=== PATIENT | female | born 1980 | race Caucasian/White ===

== ENCOUNTER 2019-12-13 15:00 | Emergency (ER) | payer MEDICAID, OTHER ==
[2019-12-13] MEDS ORDERED: Sodium Chloride 0.9% 1,000 ML IV STA (15:17)
[2019-12-13] MEDS ORDERED: HYDROmorphone 0.5 MG/0.5 ML Syringe IVPUSH ONE ×2 (15:18→17:47)
[2019-12-13] MEDS ORDERED: cefTRIAXone 2 GM in Sodium Chloride 0.9% 100 ML IV ONE (15:18)
[2019-12-13] MEDS: Ondansetron 4 MG/2 ML SDV IVPUSH ONE ×2 (15:21→17:15)
[2019-12-13] MEDS: Sodium Chloride 0.9% 10 ML Syringe FLUSH PRN ×2 (15:21→15:52)
--- NOTE | 2019-12-13 15:23 | EDM.PDOC ---
<Sunni Vincent - Last Filed: 12/13/19 15:17> ED HPI GENERAL MEDICAL PROBLEM - General Chief Complaint: Genitourinary Problem Stated Complaint: [facility] BR[facility]GHT IN FOR UTI Time Seen by Provider: 12/13/19 15:08 Source of Information: Reports: Patient History Limitations: Reports: No Limitations - History of Present Illness INITIAL COMMENTS - FREE TEXT/NARRATIVE: Patient is a 39-year-old female who was brought in by [facility] for pelvic burning, dysuria, fever, and severe back pain. She was seen yesterday at [facility] for similar symptoms and was diagnosed with a UTI. She was provided a prescription for an oral antibiotic, however she states she was unable to fill prescription because of insurance issues and she couldn't afford to pay for the medication out of pocket. She notes today the bilateral flank and back pain has increased and the pain is now radiating down the back of her legs. She rates the pain at a 9/10 and describes it as a constant burning and sharp pain. She notes burning in the pelvic region that is constant and burning with urination. She reports she has noted blood in her urine at home and has had a fever at home. She took ibuprofen three hours ago for the fever. She was nauseous while in the ambulance and was administered 4 mg of Zofran IV. She denies any chest pain, shortness of breath, and abdominal pain. Onset: Gradual Duration: Day(s):, Getting Worse Location: Reports: Back (bilateral flank and lumbar pain that radiates down bilateral legs), Pelvis (constant burning sensation) Quality: Reports: Burning, Sharp Severity: Moderate Improves with: Reports: Medication Worsens with: Reports: Movement Associated Symptoms: Reports: Fever/Chills. Denies: Chest Pain, Shortness of Breath, Syncope Treatments PUBLIC SAFETY POLICE: Reports: IV/IO, NSAIDS (Ibuprofen taken at home for fever), Other Medication(s) (Zofran IV) Lower Back Pain Score (Numeric/FACES): 10 - Related Data Allergies Allergy/AdvReac Type Severity Reaction Status Date / Time clarithromycin Allergy Hives Verified 12/13/19 15:11 ketorolac [From Toradol] Allergy Headache Verified 12/13/19 15:11 Home Meds: Home Meds Ibuprofen 200 mg PO Q4HR PRN 12/13/19 [History] LORazepam [Ativan] 0.5 mg PO DAILY 12/13/19 [History] QUEtiapine [SEROquel] 100 mg PO BEDTIME 12/13/19 [History] Past Medical History HEENT History: Reports: Other (See Below) Other HEENT History: severe dental decay Cardiovascular History: Reports: Other (See Below) Other Cardiovascular History: Endocarditis Gastrointestinal History: Reports: Other (See Below) Other Gastrointestinal History: G-tube Genitourinary History: Reports: Acute Renal Failure [employer] History: Reports: Musculoskeletal History: Reports: None Neurological History: Reports: None Psychiatric History: Reports: Addiction, Anxiety Endocrine/Metabolic History: Reports: Obesity/BMI 30+ Hematologic History: Reports: Anemia Immunologic History: Reports: None Oncologic (Cancer) History: Reports: None Dermatologic History: Reports: None - Infectious Disease History Infectious Disease History: Reports: Hepatitis C, Other (See Below) Other Infectious Disease History: Pt reports Hepatitis C is gone now as of . - Past Surgical History Respiratory Surgical History: Reports: Tracheostomy GI Surgical History: Reports: Cholecystectomy Female Surgical History: Reports: Section Social & Family History - Tobacco Use Smoking Status *Q: Current Every Day Smoker Years of Tobacco use: 20 Packs/Tins Daily: 0.5 - Caffeine Use Caffeine Use: Reports: Soda, Tea - Recreational Drug Use Recreational Drug Use: No - Living Situation & Occupation Living situation: Reports: Single, with Family Occupation: Unemployed ED ROS GENERAL - Review of Systems Review Of Systems: See Below Constitutional: Reports: Fever, Chills. Denies: Weakness, Diaphoresis Respiratory: Reports: No Symptoms. Denies: Shortness of Breath, Wheezing Cardiovascular: Reports: No Symptoms. Denies: Chest Pain, Edema, Lightheadedness, Palpitations GI/Abdominal: Reports: Nausea. Denies: Abdominal Pain, Diarrhea, Vomiting : Reports: Dysuria, Flank Pain (bilateral), Frequency, Hematuria, Pain, Urgency. Denies: Urinary Retention Musculoskeletal: Reports: Back Pain (lower ) Skin: Reports: Wound (scattered abrasions to posterior aspect of bilateral hands ). Denies: Rash, Erythema Neurological: Reports: Headache, Tingling (down bilateral legs from lower back pain). Denies: Confusion, Dizziness, Numbness, Difficulty Walking, Weakness Psychiatric: Reports: No Symptoms ED EXAM, RENAL/ - Physical Exam Exam: See Below Exam Limited By: No Limitations General Appearance: Alert, Mild Distress Neck: Normal Inspection, Supple, Non-Tender, Full Range of Motion Respiratory/Chest: No Respiratory Distress, No Accessory Muscle Use, Chest Non- Tender, Wheezing (mild wheezing bilateral lower lobes). No: Rales, Rhonchi Cardiovascular: Normal Peripheral Pulses, Regular Rate, Rhythm, No Edema, Tachycardia. No: No Murmur GI/Abdominal: Normal Bowel Sounds, Soft, Non-Tender, No Organomegaly, No Distention Back Exam: Normal Inspection, Full Range of Motion, CVA Tenderness (L), CVA Tenderness (R), Other (bilateral lower back pain with palpation) Extremities: Normal Inspection, Normal Range of Motion, Non-Tender, No Pedal Edema, Normal Capillary Refill, Leg Pain (pain with palpation to posterior aspects of bilateral legs) Neurological: Alert, Oriented, Normal Cognition, No Motor/Sensory Deficits Psychiatric: Normal Affect, Normal Mood Skin Exam: Warm, Dry, Intact, No Rash, Wound/Incision (scattered abrasions and ecchymosis to posterior aspect of bilateral hands w). No: Erythema Course - Vital Signs Last Recorded V/S: Last Vital Signs Temp 98.6 F 12/13/19 15:05 Pulse 103 H 12/13/19 15:05 Resp 18 12/13/19 15:05 BP 120/81 12/13/19 15:05 Pulse Ox 97 12/13/19 15:05 - Orders/Labs/Meds Orders: Active Orders 24 hr Category Date Time Status Peripheral IV Care [RC] . DIRECTED Care 12/13/19 15:17 Active UA W/MICROSCOPIC [URIN] Stat Lab 12/13/19 16:40 Results Sodium Chloride 0.9% [Saline Flush] Med 12/13/19 15:17 Active 10 ml FLUSH ASDIRECTED PRN ED Antiemetic Medication Reflex [OM.PC] Stat Oth 12/13/19 15:17 Ordered Peripheral IV Insertion Adult [OM.PC] Stat Oth 12/13/19 15:17 Ordered Medication Orders Sodium Chloride (Saline Flush) 10 ml FLUSH ASDIRECTED PRN PRN Reason: Keep Vein Open Last Admin: 12/13/19 15:52 Dose: 10 ml Admin: 12/13/19 15:21 Dose: 10 ml Labs: Laboratory Tests 12/13/19 12/13/19 12/13/19 Range/Units 15:39 15:39 15:39 WBC 16.53 H (3.98-10.04) K/mm3 RBC 5.28 H (3.98-5.22) M/mm3 Hgb 16.2 H D (11.2-15.7) gm/dl Hct 49.6 H (34.1-44.9) % MCV 93.9 D (79.4-94.8) fl MCH 30.7 (25.6-32.2) pg MCHC 32.7 (32.2-35.5) g/dl RDW Std Deviation 45.1 (36.4-46.3) fL Plt Count 372 H D (182-369) K/mm3 MPV 8.9 L (9.4-12.3) fl Neut % (Auto) 90.4 H (34.0-71.1) % Lymph % (Auto) 6.0 L (19.3-51.7) % Dorado % (Auto) 3.1 L (4.7-12.5) % Eos % (Auto) 0.2 L (0.7-5.8) Baso % (Auto) 0.1 (0.1-1.2) % Neut # (Auto) 14.94 H (1.56-6.13) K/mm3 Lymph # (Auto) 0.99 L (1.18-3.74) K/mm3 Dor[place] # (Auto) 0.52 H (0.24-0.36) K/mm3 Eos # (Auto) 0.03 L (0.04-0.36) K/mm3 Baso # (Auto) 0.01 (0.01-0.08) K/mm3 Manual Slide Review Abnormal smear Sodium 137 (136-145) mEq/L Potassium 3.9 (3.5-5.1) mEq/L Chloride 101 (98-107) mEq/L Carbon Dioxide 26 (21-32) mEq/L Anion Gap 13.9 (5-15) BUN 14 (7-18) mg/dL Creatinine 1.0 (0.55-1.02) mg/dL Est Cr Clr Drug Dosing 60.92 mL/min Estimated GFR (MDRD) > 60 (>60) mL/min BUN/Creatinine Ratio 14.0 (14-18) Glucose 61 L (74-106) mg/dL Lactic Acid 1.4 (0.4-2.0) mmol/L Calcium 9.1 (8.5-10.1) mg/dL Total Bilirubin 1.1 H (0.2-1.0) mg/dL AST 15 (15-37) U/L ALT 20 (14-59) U/L Alkaline Phosphatase 144 H (46-116) U/L Total Protein 8.6 H (6.4-8.2) g/dl Albumin 3.4 (3.4-5.0) g/dl Globulin 5.2 gm/dL Albumin/Globulin Ratio 0.7 L (1-2) HCG, Qual (NEGATIVE) Urine Color (Yellow) Urine Appearance (Clear) Urine pH (5.0-8.0) Ur Specific Cal[place] (1.005-1.030) Urine Protein (Negative) Urine Glucose (UA) (Negative) Urine Ketones (Negative) Urine Occult Blood (Negative) Urine Nitrite (Negative) Urine Bilirubin (Negative) Urine Urobilinogen (0.2-1.0) Ur Leukocyte Esterase (Negative) 12/13/19 12/13/19 Range/Units 15:39 16:40 WBC (3.98-10.04) K/mm3 RBC (3.98-5.22) M/mm3 Hgb (11.2-15.7) gm/dl Hct (34.1-44.9) % MCV (79.4-94.8) fl MCH (25.6-32.2) pg MCHC (32.2-35.5) g/dl RDW Std Deviation (36.4-46.3) fL Plt Count (182-369) K/mm3 MPV (9.4-12.3) fl Neut % (Auto) (34.0-71.1) % Lymph % (Auto) (19.3-51.7) % Dorado % (Auto) (4.7-12.5) % Eos % (Auto) (0.7-5.8) Baso % (Auto) (0.1-1.2) % Neut # (Auto) (1.56-6.13) K/mm3 Lymph # (Auto) (1.18-3.74) K/mm3 Dorado # (Auto) (0.24-0.36) K/mm3 Eos # (Auto) (0.04-0.36) K/mm3 Baso # (Auto) (0.01-0.08) K/mm3 Manual Slide Review Sodium (136-145) mEq/L Potassium (3.5-5.1) mEq/L Chloride (98-107) mEq/L Carbon Dioxide (21-32) mEq/L Anion Gap (5-15) BUN (7-18) mg/dL Creatinine (0.55-1.02) mg/dL Est Cr Clr Drug Dosing mL/min Estimated GFR (MDRD) (>60) mL/min BUN/Creatinine Ratio (14-18) Glucose (74-106) mg/dL Lactic Acid (0.4-2.0) mmol/L Calcium (8.5-10.1) mg/dL Total Bilirubin (0.2-1.0) mg/dL AST (15-37) U/L ALT (14-59) U/L Alkaline Phosphatase (46-116) U/L Total Protein (6.4-8.2) g/dl Albumin (3.4-5.0) g/dl Globulin gm/dL Albumin/Globulin Ratio (1-2) HCG, Qual Negative (NEGATIVE) Urine Color Yellow (Yellow) Urine Appearance Slt cloudy H (Clear) Urine pH 7.0 (5.0-8.0) Ur Specific [place] 1.025 (1.005-1.030) Urine Protein 2+ H (Negative) Urine Glucose (UA) Negative (Negative) Urine Ketones Negative (Negative) Urine Occult Blood 2+ H (Negative) Urine Nitrite Positive H (Negative) Urine Bilirubin Negative (Negative) Urine Urobilinogen 4.0 H (0.2-1.0) Ur Leukocyte Esterase 2+ H (Negative) Meds: Medications Generic Name Dose Route Start Last Admin Trade Name Freq PRN Reason Stop Dose Admin Sodium Chloride 10 ml 12/13/19 15:17 12/13/19 15:52 Saline Flush FLUSH 10 ml ASDIRECTED PRN Administration Keep Vein Open Discontinued Medications Generic Name Dose Route Start Last Admin Trade Name Freq PRN Reason Stop Dose Admin Hydromorphone HCl 0.5 mg 12/13/19 15:18 12/13/19 15:52 Dilaudid IVPUSH 12/13/19 15:19 0.5 mg ONETIME ONE Administration Ceftriaxone Sodium 2 gm/ 100 mls @ 200 mls/hr 12/13/19 15:18 12/13/19 15:52 Sodium Chloride IV 12/13/19 15:47 200 mls/hr ONETIME ONE Administration Sodium Chloride 1,000 mls @ 1,000 mls/hr 12/13/19 15:17 12/13/19 17:26 Normal Saline IV 12/13/19 16:16 Not Given .BOLUS STA Ondansetron HCl 4 mg 12/13/19 15:17 12/13/19 17:15 Zofran IVPUSH 12/13/19 15:18 4 mg ONETIME ONE Administration Departure - Departure Disposition: Home, Self-Care 01 Clinical Impression: Pyelonephritis - Discharge Information Referrals: Layne Bowden, [employer] [employer] [Primary Care Provider] - 1 Week Forms: ED Department Discharge Additional Instructions: Drink plenty of fluids. Take keflex 2 times per day for 10 days. Take the zofran every 6 hours as needed for nausea and vomiting. Take tylenol or motrin for pain. If that does not help, try the hydrocodone. Please return if you are worse. Sepsis Event Note - Evaluation Sepsis Screening Result: Possible Sepsis Risk - Focused Exam Vital Signs: Vital Signs Temp Pulse Resp BP Pulse Ox 12/13/19 15:05 98.6 F 103 H 18 120/81 97 Date Exam was Performed: 12/13/19 Time Exam was Performed: 15:17 - My Orders Last 24 Hours: My Active Orders 12/13/19 15:17 Peripheral IV Care [RC] . DIRECTED Sodium Chloride 0.9% [Saline Flush] 10 ml FLUSH ASDIRECTED PRN ED Antiemetic Medication Reflex [OM.PC] Stat Peripheral IV Insertion Adult [OM.PC] Stat 12/13/19 16:40 UA W/MICROSCOPIC [URIN] Stat - Assessment/Plan Last 24 Hours: My Active Orders 12/13/19 15:17 Peripheral IV Care [RC] . DIRECTED Sodium Chloride 0.9% [Saline Flush] 10 ml FLUSH ASDIRECTED PRN ED Antiemetic Medication Reflex [OM.PC] Stat Peripheral IV Insertion Adult [OM.PC] Stat 12/13/19 16:40 UA W/MICROSCOPIC [URIN] Stat <[email or web address] - Last Filed: 12/13/19 17:50> Course - Re-Assessments/Exams Free Text/Narrative Re-Assessment/Exam: 12/13/19 17:11 I examined the patient myself and I agree with Sunni's assessment and plan. I ordered an IV NS 1L bolus, zofran 4mg IV, dilaudid IV, rocephin 2 grams IV, labs and UA. Her WBC is elevated at 16.53. Her Hgb is elevated at 16.2. Her platelets are elevated at 372. Her lactic acid is normal at 1.4. Her total bili is elevated at 1.1. Her alk phos is elevated at 149. Her HCG is negative. She has pyelonephritis. She cannot afford her meds. I will give her some meds from [facility]. 12/13/19 17:47 Her UA shows a UTI. I have ordered something more for pain. Departure - Departure Time of Disposition: 17:50 Condition: Good - Discharge Information *PRESCRIPTION DRUG MONITORING PROGRAM REVIEWED*: No *COPY OF PRESCRIPTION DRUG MONITORING REPORT IN PATIENT DEVANG: No Sepsis Event Note - Focused Exam Date Exam was Performed: 12/13/19 Time Exam was Performed: 17:47
== END 2019-12-13 18:13 | disposition home or self-care (01) ==
LOC: JD.ED 15:00
DX: N12 Tubulo-interstitial nephritis, not specified as acute or chronic (principal); N39.0 Urinary tract infection, site not specified; F41.9 Anxiety disorder, unspecified; F17.210 Nicotine dependence, cigarettes, uncomplicated; Z79.899 Other long term (current) drug therapy; Z88.1 Allergy status to other antibiotic agents
CPT/HCPCS: 36415; 80053; 81001; 83605; 84703; 85025; 96365; 96375; 96376; 99284; J0696; J1170; J2405; J7050

== ENCOUNTER 2020-02-03 17:09 | Emergency (ER) | payer MEDICAID ==
--- NOTE | 2020-02-03 18:28 | EDM.PDOCBH ---
ED HPI GENERAL MEDICAL PROBLEM - General Chief Complaint: Behavioral/Psych Stated Complaint: SUICIDAL IDEATIONS Time Seen by Provider: 02/03/20 17:29 Source of Information: Reports: Patient History Limitations: Reports: No Limitations - History of Present Illness INITIAL COMMENTS - FREE TEXT/NARRATIVE: Patient is a 39-year-old female who presents to the ER with complaints of for suicidal ideation. She states that over the last 3 days she "has not been right ". She also discussed paranoid thoughts that she is not safe in her home and that people are out to get her. She does also admit to hearing voices which are "whispering ", but she is not able to make out what they are saying. She has fleeting thoughts of harming herself but does not have a specific plan. She has been walking around with a knife in her pocket which during the triage process she did pull out and ended up giving to the nurse. When asked why she was carrying this, the patient stated because she feels like people are out to get her. She denies any visual hallucinations. She does have a history of bipolar and severe anxiety. She at one time took Seroquel and Ativan, however she has not taken this for over a month. She does have a history of heroin addiction but states she has not used that drug for "many years ". States she did try meth about 1 month ago and then again 1 week ago but has not used since that time. She did also smoke marijuana 1 week week ago. She states that she had 2 drinks earlier today to help try to calm herself. Her friend also gave her a Klonopin 0.5 mg earlier today for her anxiety. When asked if there is been any traumatic events that could have triggered these feelings, patient did become tearful and explained that 1 of her friends was recently put in custodial for murder and that since that time she is felt like people are out to get her. She lives with a friend, but does not have any family or support system locally. - Related Data Allergies Allergy/AdvReac Type Severity Reaction Status Date / Time clarithromycin Allergy Hives Verified 02/03/20 17:26 ketorolac [From Toradol] Allergy Headache Verified 02/03/20 17:26 Home Meds: Home Meds LORazepam [Ativan] 1 mg PO BID 12/13/19 [History] QUEtiapine [SEROquel] 100 mg PO BEDTIME 12/13/19 [History] Past Medical History HEENT History: Reports: Other (See Below) Other HEENT History: severe dental decay Cardiovascular History: Reports: Other (See Below) Other Cardiovascular History: Endocarditis Gastrointestinal History: Reports: Other (See Below) Other Gastrointestinal History: G-tube Genitourinary History: Reports: Acute Renal Failure CANINE DEPUTY History: Reports: Musculoskeletal History: Reports: None Neurological History: Reports: None Psychiatric History: Reports: Addiction, Anxiety Endocrine/Metabolic History: Reports: Obesity/BMI 30+ Hematologic History: Reports: Anemia Immunologic History: Reports: None Oncologic (Cancer) History: Reports: None Dermatologic History: Reports: None - Infectious Disease History Infectious Disease History: Reports: Hepatitis C, Other (See Below) Other Infectious Disease History: Pt reports Hepatitis C is gone now as of . - Past Surgical History Respiratory Surgical History: Reports: Tracheostomy GI Surgical History: Reports: Cholecystectomy Female Surgical History: Reports: Section Social & Family History - Tobacco Use Smoking Status *Q: Current Every Day Smoker Years of Tobacco use: 10 Packs/Tins Daily: 0.5 - Caffeine Use Caffeine Use: Reports: Coffee, Energy Drinks, Soda, Tea - Recreational Drug Use Recreational Drug Use: Yes Drug Use in Last 12 Months: No Recreational Drug Type: Reports: Heroin - Living Situation & Occupation Living situation: Reports: Single, with Family Occupation: Unemployed ED ROS GENERAL - Review of Systems Review Of Systems: See Below Constitutional: Reports: No Symptoms HEENT: Reports: No Symptoms Respiratory: Reports: No Symptoms Cardiovascular: Reports: No Symptoms Endocrine: Reports: No Symptoms GI/Abdominal: Reports: No Symptoms : Reports: No Symptoms Musculoskeletal: Reports: No Symptoms Skin: Reports: No Symptoms Neurological: Reports: No Symptoms Psychiatric: Reports: Anxiety, Depression, Hallucinations, Suicidal Ideation Hematologic/Lymphatic: Reports: No Symptoms Immunologic: Reports: No Symptoms ED EXAM, BEHAVIORAL HEALTH - Physical Exam Exam: See Below Exam Limited By: No Limitations General Appearance: Alert, WD/WN, No Apparent Distress Respiratory/Chest: No Respiratory Distress, Lungs Clear, Normal Breath Sounds, No Accessory Muscle Use, Chest Non-Tender Cardiovascular: Normal Peripheral Pulses, Regular Rate, Rhythm, No Edema, No Gallop, No JVD, No Murmur, No Rub GI/Abdominal: Normal Bowel Sounds, Soft, Non-Tender, No Organomegaly, No Distention, No Abnormal Bruit, No Mass Extremities: Other (Scattered scabs to bilateral forearms and face.) Neurological: Alert, Normal Mood/Affect, CN II-XII Intact, Normal Cognition, Normal Gait, Normal Reflexes, No Motor/Sensory Deficits, Oriented x 3 Psychiatric: Alert, Normal Cognition, Oriented, Depressed Mood, Tearful, Suicidal Thoughts, Auditory Hallucinations, Paranoid Thoughts, Other ( Cooperative). No: Flight of Ideas, Homicidal Thoughts, Suicidal Plan, Visual Hallucinations, Threatening Behavior Skin Exam: Warm, Dry, Intact, Normal color, No rash EKG INTERPRETATION EKG Date: 02/03/20 Time: 18:05 Rhythm: NSR Rate (Beats/Min): 99 [place]: Normal P-Wave: Present QRS: Normal ST-T: Normal QT: Normal EKG Interpretation Comments: Borderline sinus IVCD Non-diagnostic ST-T changes lead II and V6. EKG interpreted by Dr. Garcia. COURSE, BEHAVIORAL HEALTH COMP - Course Vital Signs: Last Vital Signs Temp 97.4 F 02/03/20 21:24 Pulse 90 02/03/20 21:24 Resp 16 02/03/20 21:24 BP 111/87 02/03/20 21:24 Pulse Ox 94 L 02/03/20 21:24 Orders, Labs, Meds: Active Orders 24 hr Category Date Time Status EKG Documentation Completion [RC] STAT Care 02/03/20 17:53 Active Laboratory Tests 02/03/20 02/03/20 02/03/20 Range/Units 18:05 18:05 18:05 WBC 13.16 H (3.98-10.04) K/mm3 RBC 5.32 H (3.98-5.22) M/mm3 Hgb 16.2 H (11.2-15.7) gm/dl Hct 49.9 H (34.1-44.9) % MCV 93.8 (79.4-94.8) fl MCH 30.5 (25.6-32.2) pg MCHC 32.5 (32.2-35.5) g/dl RDW Std Deviation 45.4 (36.4-46.3) fL Plt Count 338 (182-369) K/mm3 MPV 9.3 L (9.4-12.3) fl Neutrophils % (Manual) 57 (40-60) % Band Neutrophils % 0 (0-10) % Lymphocytes % (Manual) 38 (20-40) % Atypical Lymphs % 0 % Monocytes % (Manual) 5 (2-10) % Eosinophils % (Manual) 0 L (0.7-5.8) % Basophils % (Manual) 0 L (0.1-1.2) Platelet Estimate Adequate Plt Morphology Comment Normal RBC Morph Comment Normal Sodium 139 (136-145) mEq/L Potassium 3.4 L (3.5-5.1) mEq/L Chloride 105 (98-107) mEq/L Carbon Dioxide 21 (21-32) mEq/L Anion Gap 16.4 H (5-15) BUN 12 (7-18) mg/dL Creatinine 0.7 (0.55-1.02) mg/dL Est Cr Clr Drug Dosing 87.03 mL/min Estimated GFR (MDRD) > 60 (>60) mL/min BUN/Creatinine Ratio 17.1 (14-18) Glucose 100 (74-106) mg/dL Calcium 9.4 (8.5-10.1) mg/dL Total Bilirubin 0.7 (0.2-1.0) mg/dL AST 18 (15-37) U/L ALT 19 (14-59) U/L Alkaline Phosphatase 131 H (46-116) U/L Total Protein 8.2 (6.4-8.2) g/dl Albumin 3.7 (3.4-5.0) g/dl Globulin 4.5 gm/dL Albumin/Globulin Ratio 0.8 L (1-2) TSH 3rd Generation 1.431 (0.358-3.74) uIU/mL Urine HCG, Qual (NEGATIVE) Salicylates 2.9 (2.8-20) mg/dL Urine Opiates Screen (WYRCCX=043) Ur Buprenorphine Scrn (CUTOFF=10) Ur Oxycodone Screen (RLT9BP=560) Urine Methadone Screen (VGWQZD=067) Ur Propoxyphene Screen (LCZFTO=491) Acetaminophen 0 L (10-30) ug/mL Ur Barbiturates Screen (VWPNCC=356) Ur Tricyclics Screen (TBVVXJ=749) Ur Phencyclidine Scrn (CUTOFF=25) Ur Amphetamine Screen (OQUCAD=900) U Methamphetamines Scrn (DBFMXV=947) U Benzodiazepines Scrn (EYADMK=211) U Cocaine Metab Screen (GSQCRY=993) U Marijuana (THC) Screen (CUTOFF=50) Ethyl Alcohol 0.05 (0.00) gm% 02/03/20 02/03/20 Range/Units 18:45 18:45 WBC (3.98-10.04) K/mm3 RBC (3.98-5.22) M/mm3 Hgb (11.2-15.7) gm/dl Hct (34.1-44.9) % MCV (79.4-94.8) fl MCH (25.6-32.2) pg MCHC (32.2-35.5) g/dl RDW Std Deviation (36.4-46.3) fL Plt Count (182-369) K/mm3 MPV (9.4-12.3) fl Neutrophils % (Manual) (40-60) % Band Neutrophils % (0-10) % Lymphocytes % (Manual) (20-40) % Atypical Lymphs % % Monocytes % (Manual) (2-10) % Eosinophils % (Manual) (0.7-5.8) % Basophils % (Manual) (0.1-1.2) Platelet Estimate Plt Morphology Comment RBC Morph Comment Sodium (136-145) mEq/L Potassium (3.5-5.1) mEq/L Chloride (98-107) mEq/L Carbon Dioxide (21-32) mEq/L Anion Gap (5-15) BUN (7-18) mg/dL Creatinine (0.55-1.02) mg/dL Est Cr Clr Drug Dosing mL/min Estimated GFR (MDRD) (>60) mL/min BUN/Creatinine Ratio (14-18) Glucose (74-106) mg/dL Calcium (8.5-10.1) mg/dL Total Bilirubin (0.2-1.0) mg/dL AST (15-37) U/L ALT (14-59) U/L Alkaline Phosphatase (46-116) U/L Total Protein (6.4-8.2) g/dl Albumin (3.4-5.0) g/dl Globulin gm/dL Albumin/Globulin Ratio (1-2) TSH 3rd Generation (0.358-3.74) uIU/mL Urine HCG, Qual Negative (NEGATIVE) Salicylates (2.8-20) mg/dL Urine Opiates Screen Negative (FEBCUJ=789) Ur Buprenorphine Scrn Negative (CUTOFF=10) Ur Oxycodone Screen Negative (SMP2VH=992) Urine Methadone Screen Negative (MLSWHM=766) Ur Propoxyphene Screen Negative (HKLVCP=522) Acetaminophen (10-30) ug/mL Ur Barbiturates Screen Negative (KNFWSP=031) Ur Tricyclics Screen Negative (NGEUOB=635) Ur Phencyclidine Scrn Negative (CUTOFF=25) Ur Amphetamine Screen Presumptive positive H (NDLZEO=130) U Methamphetamines Scrn Presumptive positive H (JTEPNL=660) U Benzodiazepines Scrn Negative (ADISRO=488) U Cocaine Metab Screen Negative (LMBJFN=346) U Marijuana (THC) Screen Presumptive positive H (CUTOFF=50) Ethyl Alcohol (0.00) gm% Medications Discontinued Medications Generic Name Dose Route Start Last Admin Trade Name Freq PRN Reason Stop Dose Admin Haloperidol 5 mg 02/03/20 20:53 02/03/20 21:04 Haldol PO 02/03/20 20:54 5 mg ONETIME ONE Administration Re-Assessment/Re-Exam: 02/03/2020 1950 Work-up was remarkable for a WBC slightly elevated at 13.16, hemoglobin slightly elevated at 16.2, and anion gap slightly elevated at 16.4 indicating the patient is likely dehydrated. Potassium slightly low at 3.4. hCG was negative. Tox screen was positive for amphetamines, methamphetamines, and marijuana which would correlate with the report the patient gave. [facility] and spoke with psychiatrist, Dr. Navarro. He has accepted the patient for transfer. Dr. Veliz requested that Haldol be given prior to departure. Emergency hold paperwork has been completed. We will contact [facility] to arrange for transport to [place]. 02/03/[id number] [facility] is here to transport patient. Patient was cooperative and left emergency department without event. Departure - Departure Time of Disposition: 19:50 Disposition: DC/Tfer to Psych Hosp/Unit [facility] Clinical Impression: Suicidal ideation, Auditory hallucinations, Paranoid delusion - Discharge Information Referrals: PCP,None [Primary Care Provider] - Forms: ED Department Discharge Sepsis Event Note - Evaluation Sepsis Screening Result: No Definite Risk - Focused Exam Vital Signs: Vital Signs Temp Pulse Resp BP Pulse Ox 02/03/20 21:24 97.4 F 90 16 111/87 94 L 02/03/20 17:21 97.2 F 109 H 18 135/98 H 94 L Date Exam was Performed: 02/03/20 Time Exam was Performed: 21:38 - My Orders Last 24 Hours: My Active Orders 02/03/20 17:53 EKG Documentation Completion [RC] STAT - Assessment/Plan Last 24 Hours: My Active Orders 02/03/20 17:53 EKG Documentation Completion [RC] STAT
[2020-02-03 18:41] LABS: ACETAMINOPHEN 0 ug/mL (10-30)
[2020-02-03] MEDS ORDERED: Haloperidol 5 MG Tab PO ONE (20:53)
== END 2020-02-03 21:20 ==
LOC: JD.ED 17:09
DX: F22 Delusional disorders (principal); R45.851 Suicidal ideations; Z88.1 Allergy status to other antibiotic agents; F41.9 Anxiety disorder, unspecified; E66.9 Obesity, unspecified; Z68.32 Body mass index [BMI] 32.0-32.9, adult; Z79.899 Other long term (current) drug therapy; F17.210 Nicotine dependence, cigarettes, uncomplicated
CPT/HCPCS: 36415; 80053; 80306; 80307; 81025; 84443; 85007; 85027; 93005; 99285; A9270; 93010

== ENCOUNTER 2020-02-23 15:13 | Emergency (ER) | payer MEDICAID ==
--- NOTE | 2020-02-23 16:16 | EDM.PDOC ---
ED HPI GENERAL MEDICAL PROBLEM - General Chief Complaint: Upper Extremity Injury/Pain Stated Complaint: POSS BROKEN ARM Time Seen by Provider: 02/23/20 15:44 Source of Information: Reports: Patient History Limitations: Reports: No Limitations - History of Present Illness INITIAL COMMENTS - FREE TEXT/NARRATIVE: Patient is a 39-year-old female who presents with complaints of left wrist pain. States that she tripped over a laundry basket and landed with her hands in front of her to catch herself. Patient states she took ibuprofen prior to coming ER but did not help. She has no history of previous injury to this extremity. Left Arm Pain Score (Numeric/FACES): 10 - Related Data Allergies Allergy/AdvReac Type Severity Reaction Status Date / Time clarithromycin Allergy Hives Verified 02/23/20 15:39 ketorolac [From Toradol] Allergy Headache Verified 02/23/20 15:39 Home Meds: Home Meds QUEtiapine [SEROquel] 100 mg PO BEDTIME 12/13/19 [History] Acetaminophen/HYDROcodone [[place] 325-5 MG] 1 tab PO Q4H PRN #10 tablet 02/23/20 [Rx] Past Medical History HEENT History: Reports: Other (See Below) Other HEENT History: severe dental decay Cardiovascular History: Reports: Other (See Below) Other Cardiovascular History: Endocarditis Gastrointestinal History: Reports: Other (See Below) Other Gastrointestinal History: G-tube Genitourinary History: Reports: Acute Renal Failure 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 - Past Surgical History Respiratory Surgical History: Reports: Tracheostomy GI Surgical History: Reports: Cholecystectomy Female Surgical History: Reports: Section Social & Family History - Tobacco Use Smoking Status *Q: Current Every Day Smoker Years of Tobacco use: 22 Packs/Tins Daily: 0.5 - Caffeine Use Caffeine Use: Reports: Coffee, Soda - Recreational Drug Use Recreational Drug Use: No - Living Situation & Occupation Living situation: Reports: Single, with Family Occupation: Unemployed Review of Systems - Review of Systems Review Of Systems: Comprehensive ROS is negative, except as noted in HPI. ED EXAM, GENERAL - Physical Exam Exam: See Below Exam Limited By: No Limitations General Appearance: Alert, WD/WN, No Apparent Distress Respiratory/Chest: No Respiratory Distress, Lungs Clear, Normal Breath Sounds, No Accessory Muscle Use, Chest Non-Tender Cardiovascular: Normal Peripheral Pulses, Regular Rate, Rhythm, No Edema, No Gallop, No JVD, No Murmur, No Rub Extremities: Other (Mild's edema and slight deformity to left wrist. CMS intact distal to injury.) Neurological: Alert, Oriented, CN II-XII Intact, Normal Cognition, Normal Gait, Normal Reflexes, No Motor/Sensory Deficits Psychiatric: Normal Affect, Normal Mood Skin Exam: Warm, Dry, Intact, Normal Color, No Rash ED TRAUMA EXTREMITY PROCEDURES - Splinting Left Upper Extremity Splint Site: left short arm/wrist Pre-Procedure NV Status: Normal Post-Procedure NV Status: Normal Splint Material: Fiberglass, Sling Splint Design: Volar Applied & Form Fitted By: Provider Provider Post-Splint Application NV Check: NV Status Normal, Good Position Complications: No Course - Vital Signs Last Recorded V/S: Last Vital Signs Temp 98 F 02/23/20 15:35 Pulse 96 02/23/20 15:35 Resp 18 02/23/20 15:35 BP 122/94 H 02/23/20 15:35 Pulse Ox 99 02/23/20 15:35 - Orders/Labs/Meds Orders: Active Orders 24 hr Category Date Time Status DME for Discharge [COMM] Routine Oth 02/23/20 16:17 Ordered - Re-Assessments/Exams Free Text/Narrative Re-Assessment/Exam: Xray shows a comminuted fracture of the left distal radius. I will splint and advise to f/u with Dr. Shaver. Departure - Departure Time of Disposition: 16:12 Disposition: Home, Self-Care 01 Condition: Fair Clinical Impression: Fracture of radius Qualifiers: Encounter type: initial encounter Radius location: distal Fracture type: closed Fracture morphology: unspecified fracture morphology Laterality: left Qualified Code(s): S52.502A - Unspecified fracture of the lower end of left radius, initial encounter for closed fracture - Discharge Information *PRESCRIPTION DRUG MONITORING PROGRAM REVIEWED*: Yes *COPY OF PRESCRIPTION DRUG MONITORING REPORT IN PATIENT DEVANG: No Prescriptions: Acetaminophen/HYDROcodone [[place] 325-5 MG] 1 tab PO Q4H PRN #10 tablet PRN Reason: Pain Instructions: Radial Fracture Referrals: Maxine Freire NP [Primary Care Provider] - Sammy Shaver MD [Physician] - Forms: ED Department Discharge Additional Instructions: You were seen in the emergency department today for pain and swelling to your left wrist after falling. An x-ray was done and showed a fracture of your distal radius. Splint was applied. This should be left in place and kept dry. You may take Tylenol as needed for pain. For pain not relieved by Tylenol, a prescription for [place] has been sent to [facility]. Use this medication as prescribed. Do not drive or work for at least 12 hours after taking this medication. Ensure that you are not taking more than 4000 mg of Tylenol in 1 day. Please be aware that there is 325 mg of Tylenol in the [place] tablets. Call to schedule an appointment with Dr. Shaver, orthopedist, for late next week. The number to schedule with him as listed below. Return to the ER as needed. Sepsis Event Note - Evaluation Sepsis Screening Result: No Definite Risk - Focused Exam Date Exam was Performed: 02/24/20 Time Exam was Performed: 12:58 - My Orders Last 24 Hours: My Active Orders 02/23/20 16:17 DME for Discharge [COMM] Routine - Assessment/Plan Last 24 Hours: My Active Orders 02/23/20 16:17 DME for Discharge [COMM] Routine
--- NOTE | 2020-02-23 16:23 | CR ---
Left wrist: 4 views left wrist were obtained. Comparison: No previous wrist study. Comminuted distal radial fracture is seen through the metaphysis with articular extension. Mild posterior impaction is noted. Distal ulna appears intact. No additional bony abnormality is seen. Diffuse soft tissue swelling is present. Impression: 1. Comminuted distal radial fracture as described above. Diagnostic code #3 Study was dictated in MDT
== END 2020-02-23 16:24 | disposition home or self-care (01) ==
LOC: JD.ED 15:13
DX: S52.502A Unspecified fracture of the lower end of left radius, initial encounter for closed fracture (principal); E66.9 Obesity, unspecified; F17.210 Nicotine dependence, cigarettes, uncomplicated; Z68.30 Body mass index [BMI] 30.0-30.9, adult; Z88.1 Allergy status to other antibiotic agents; Z88.6 Allergy status to analgesic agent; W01.0XXA Fall on same level from slipping, tripping and stumbling without subsequent striking against object, initial encounter
CPT/HCPCS: 29125; 73110-26-LT; 73110-LT; 99283; 99283-25

== ENCOUNTER 2020-03-03 20:12 | Emergency (ER) | payer MEDICAID ==
[2020-03-03] MEDS ORDERED: Acetaminophen/HYDROcodone 325-10 MG Tab PO ONE (20:53)
--- NOTE | 2020-03-03 20:59 | EDM.PDOC ---
ED HPI GENERAL MEDICAL PROBLEM - General Chief Complaint: Upper Extremity Injury/Pain Stated Complaint: LEFT ARM BROKEN PAIN CANT SEE BONE/JOINT TIL THUR Time Seen by Provider: 03/03/20 20:23 Source of Information: Reports: Patient, Old Records History Limitations: Reports: No Limitations - History of Present Illness INITIAL COMMENTS - FREE TEXT/NARRATIVE: Patient is a 39-year-old female who presents to the ED for the evaluation of her left arm pain. Patient did break her distal radius, and was seen in this ER and a splint was placed, patient states she is having increased pain, and cannot get into bone and joint until , and has run out of pain medications, and was complaining about the smell of the splint, and was wondering if it could be changed to a cast. Patient has no other complaints then pain management and possible cast placement. Left Arm Pain Score (Numeric/FACES): 10 - Related Data Allergies Allergy/AdvReac Type Severity Reaction Status Date / Time clarithromycin Allergy Hives Verified 03/03/20 20:25 ketorolac [From Toradol] Allergy Headache Verified 02/23/20 15:39 Home Meds: Home Meds QUEtiapine [SEROquel] 100 mg PO BEDTIME 12/13/19 [History] Acetaminophen/HYDROcodone [[place] 325-5 MG] 1 tab PO Q6H PRN #20 tablet 03/03/20 [Rx] Past Medical History HEENT History: Reports: Other (See Below) Other HEENT History: severe dental decay Cardiovascular History: Reports: Other (See Below) Other Cardiovascular History: Endocarditis Gastrointestinal History: Reports: Other (See Below) Other Gastrointestinal History: G-tube Genitourinary History: Reports: Acute Renal Failure 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 - Past Surgical History Respiratory Surgical History: Reports: Tracheostomy GI Surgical History: Reports: Cholecystectomy Female Surgical History: Reports: Section Social & Family History - Caffeine Use Caffeine Use: Reports: Coffee, Soda - Living Situation & Occupation Living situation: Reports: Single, with Family Occupation: Unemployed Review of Systems - Review of Systems Review Of Systems: Comprehensive ROS is negative, except as noted in HPI. ED EXAM, GENERAL - Physical Exam Exam: See Below Exam Limited By: No Limitations General Appearance: Alert, WD/WN, No Apparent Distress Respiratory/Chest: No Respiratory Distress, Lungs Clear, Normal Breath Sounds, No Accessory Muscle Use, Chest Non-Tender Cardiovascular: Normal Peripheral Pulses, Regular Rate, Rhythm, No Murmur Extremities: Normal Inspection (with short arm splint on left arm), Normal Range of Motion (cant move fingers), Normal Capillary Refill Neurological: Alert, Oriented, Normal Cognition, No Motor/Sensory Deficits Psychiatric: Normal Affect, Normal Mood Skin Exam: Warm, Dry, Intact, Normal Color, No Rash Course - Vital Signs Last Recorded V/S: Last Vital Signs Temp 97.2 F 03/03/20 20:23 Pulse 88 03/03/20 20:23 Resp 16 03/03/20 20:23 BP 112/75 03/03/20 20:23 Pulse Ox 99 03/03/20 20:23 - Orders/Labs/Meds Orders: Active Orders 24 hr Category Date Time Status Acetaminophen/HYDROcodone [M[place] 325-10 MG] Med 03/03/20 20:53 Once 1 tab PO ONETIME ONE - Re-Assessments/Exams Free Text/Narrative Re-Assessment/Exam: 03/03/20 20:57 Did go over course of management with the patient, she will not be getting the cast placed at this ER today, and will have to follow-up with bone and joint on . I will however give her some more pain medication to get her through , and discharge her home with general recommendations. Departure - Departure Time of Disposition: 20:57 Disposition: Home, Self-Care 01 Condition: Good Clinical Impression: Left arm pain - Discharge Information *PRESCRIPTION DRUG MONITORING PROGRAM REVIEWED*: Yes *COPY OF PRESCRIPTION DRUG MONITORING REPORT IN PATIENT DEVANG: No Instructions: Cast or Splint Care, Adult, [id number] Referrals: Sammy Shaver MD [Primary Care Provider] - Additional Instructions: You were evaluated in the ER today regarding your ongoing left arm pain. You did not have a cath placed today, you will need to follow-up with orthopedics on as previously scheduled. You have been given some pain medication to get through until your appointment with Ortho. Please take the Morton as directed, 1 tab every 6 hours as needed. This was electronically prescribed to the [place] pharmacy located in the [facility] store, you may go there tomorrow Wednesday morning and tow picker this prescription and take as directed. Please return to the ER at any time if symptoms change or worsen. Sepsis Event Note - Evaluation Sepsis Screening Result: No Definite Risk - Focused Exam Vital Signs: Vital Signs Temp Pulse Resp BP Pulse Ox 03/03/20 20:23 97.2 F 88 16 112/75 99 Date Exam was Performed: 03/03/20 Time Exam was Performed: 20:53 - My Orders Last 24 Hours: My Active Orders 03/03/20 20:53 Acetaminophen/HYDROcodone [[place] 325-10 MG] 1 tab PO ONETIME ONE - Assessment/Plan Last 24 Hours: My Active Orders 03/03/20 20:53 Acetaminophen/HYDROcodone [[place] 325-10 MG] 1 tab PO ONETIME ONE
== END 2020-03-03 21:37 | disposition home or self-care (01) ==
LOC: JD.ED 20:12
DX: M79.602 Pain in left arm (principal); E66.9 Obesity, unspecified; F41.9 Anxiety disorder, unspecified; Z88.1 Allergy status to other antibiotic agents; Z68.32 Body mass index [BMI] 32.0-32.9, adult; Z88.8 Allergy status to other drugs, medicaments and biological substances; Z79.899 Other long term (current) drug therapy; Z90.89 Acquired absence of other organs
CPT/HCPCS: 99283; A9270; 99282

== ENCOUNTER 2020-08-07 14:06 | Emergency (ER) | payer MEDICAID ==
[2020-08-07] MEDS ORDERED: Sodium Chloride 0.9% 10 ML Syringe FLUSH PRN (14:32)
--- NOTE | 2020-08-07 15:05 | EDM.PDOC ---
ED HPI GENERAL MEDICAL PROBLEM - General Chief Complaint: Fever Stated Complaint: FEVER/INFECTION IN LEG Time Seen by Provider: 08/07/20 14:31 Source of Information: Reports: Patient History Limitations: Reports: No Limitations - History of Present Illness INITIAL COMMENTS - FREE TEXT/NARRATIVE: Patient is a 39 year old female presenting to the ER with c/o fever and an infection on her left lower leg. Pt states that a few weeks ago, she hit her leg on her coffee table and broke the skin. The wound never fully healed and over the last few days it has become increasingly painful, red, swollen, and warm. She developed a fever yesterday, but has had no nausea. vomiting, or diarrhea. She states that she has problems with chronic lower extremity edema after being on her feet for long periods and she thinks this is why it didn't fully heal. She also relapsed with IV meth use. She states that she was clean for about a year, but that she shot up meth 2 days ago. She has a scab on her left upper forearm and track bobby on her bilateral hands which she states is from this. She took ibuprofen about 2 hours prior to coming to ER. On triage, temperature was elevated at 101.3 temporal, pulse 121, blood pressure 114/77, respiratory rate 18, oxygen saturation 97%. Left Leg Pain Score (Numeric/FACES): 10 - Related Data Allergies Allergy/AdvReac Type Severity Reaction Status Date / Time clarithromycin Allergy Hives Verified 08/07/20 14:28 ketorolac [From Toradol] AdvReac Headache Verified 08/07/20 16:28 Home Meds: Home Meds QUEtiapine [SEROquel] 100 mg PO BEDTIME 12/13/19 [History] LORazepam [Ativan] 0.5 mg PO Q4H PRN 08/07/20 [History] Past Medical History HEENT History: Reports: Other (See Below) Other HEENT History: severe dental decay Cardiovascular History: Reports: Other (See Below) Other Cardiovascular History: Endocarditis Gastrointestinal History: Reports: Other (See Below) Other Gastrointestinal History: G-tube Genitourinary History: Reports: Acute Renal Failure [employer] History: Reports: Musculoskeletal History: Reports: None Neurological History: Reports: None Psychiatric History: Reports: Addiction, Anxiety Endocrine/Metabolic History: Reports: Obesity/BMI 30+ Hematologic History: Reports: Anemia Immunologic History: Reports: None Oncologic (Cancer) History: Reports: None Dermatologic History: Reports: None - Infectious Disease History Infectious Disease History: Reports: Hepatitis C, Other (See Below) Other Infectious Disease History: reports that she had the treatment - Past Surgical History Respiratory Surgical History: Reports: Tracheostomy GI Surgical History: Reports: Cholecystectomy Female Surgical History: Reports: Section Social & Family History - Tobacco Use Smoking Status *Q: Current Every Day Smoker Years of Tobacco use: 22 Packs/Tins Daily: 0.5 - Caffeine Use Caffeine Use: Reports: Coffee, Soda, Tea - Recreational Drug Use Recreational Drug Use: Yes Drug Use in Last 12 Months: Yes Recreational Drug Type: Reports: Methamphetamine - Living Situation & Occupation Living situation: Reports: Single, with Family Occupation: Unemployed ED ROS GENERAL - Review of Systems Review Of Systems: See Below Constitutional: Reports: Fever, Chills. Denies: Weakness HEENT: Reports: No Symptoms Respiratory: Reports: No Symptoms. Denies: Shortness of Breath, Cough Cardiovascular: Reports: No Symptoms Endocrine: Reports: No Symptoms GI/Abdominal: Reports: No Symptoms. Denies: Abdominal Pain, Diarrhea, Nausea, Vomiting : Reports: No Symptoms. Denies: Discharge, Dysuria, Flank Pain, Frequency Musculoskeletal: Reports: No Symptoms Skin: Reports: Other (2 open areas warmth, and swelling to left lower extremity.) Neurological: Reports: No Symptoms. Denies: Confusion, Dizziness, Headache Psychiatric: Reports: No Symptoms ED EXAM, SEPSIS - Physical Exam Exam: See Below General Appearance: Alert, WD/WN, No Apparent Distress Respiratory/Chest: No Respiratory Distress, Lungs Clear, Normal Breath Sounds, No Accessory Muscle Use, Chest Non-Tender Cardiovascular: Normal Peripheral Pulses, Regular Rate, Rhythm, No Edema, No Gal lop, No JVD, No Murmur, No Rub GI/Abdominal Exam: Normal Bowel Sounds, Soft, Non-Tender, No Organomegaly, No Distention, No Abnormal Bruit, No Mass, Pelvis Stable Neurological: Alert, Oriented, CN II-XII Intact, Normal Cognition, Normal Gait, Normal Reflexes, No Motor/Sensory Deficits Psychiatric: Normal Affect, Normal Mood Skin: Other (2 open areas (3 cm and 1 cm) to medial aspect of left lower leg. Redness and warmth is present and encompasses the entire circumference of the left lower leg. Area is very tender to palpation and has been marked with a skin marker. There is no obvious drainage however. 3 cm scabbed lesion to the left forearm. No redness or warmth surrounding this. Numerous bruises, scars, track bobby to the bilateral upper extremities.) Course - Vital Signs Last Recorded V/S: Last Vital Signs Temp 102.4 F H 08/07/20 18:22 Pulse 104 H 08/07/20 18:22 Resp 18 08/07/20 18:22 BP 111/79 08/07/20 18:22 Pulse Ox 94 L 08/07/20 18:22 - Orders/Labs/Meds Labs: Laboratory Tests 08/07/20 08/07/20 08/07/20 Range/Units 15:10 15:10 15:10 WBC 16.72 H (3.98-10.04) K/mm3 RBC 5.45 H (3.98-5.22) M/mm3 Hgb 12.8 D (11.2-15.7) gm/dl Hct 42.5 (34.1-44.9) % MCV 78.0 L D (79.4-94.8) fl MCH 23.5 L (25.6-32.2) pg MCHC 30.1 L (32.2-35.5) g/dl RDW Std Deviation 50.3 H (36.4-46.3) fL Plt Count 386 H (182-369) K/mm3 MPV 8.9 L (9.4-12.3) fl Neutrophils % (Manual) 87 H (40-60) % Band Neutrophils % 0 (0-10) % Lymphocytes % (Manual) 9 L (20-40) % Atypical Lymphs % 0 % Monocytes % (Manual) 3 (2-10) % Eosinophils % (Manual) 1 (0.7-5.8) % Basophils % (Manual) 0 L (0.1-1.2) Platelet Estimate Adequate Plt Morphology Comment Normal Hypochromasia 1+ slight RBC Morph Comment Abnormal PT 12.8 H (9.7-11.7) SECONDS INR 1.20 Sodium 136 (136-145) mEq/L Potassium 3.5 (3.5-5.1) mEq/L Chloride 99 (98-107) mEq/L Carbon Dioxide 29 (21-32) mEq/L Anion Gap 11.5 (5-15) BUN 13 (7-18) mg/dL Creatinine 0.9 (0.55-1.02) mg/dL Est Cr Clr Drug Dosing 67.69 mL/min Estimated GFR (MDRD) > 60 (>60) mL/min BUN/Creatinine Ratio 14.4 (14-18) Glucose 75 (74-106) mg/dL Lactic Acid (0.4-2.0) mmol/L Calcium 8.8 (8.5-10.1) mg/dL Total Bilirubin 0.6 (0.2-1.0) mg/dL AST 11 L (15-37) U/L ALT 15 (14-59) U/L Alkaline Phosphatase 134 H (46-116) U/L C-Reactive Protein 14.1 H* (<1.0) mg/dL Total Protein 8.6 H (6.4-8.2) g/dl Albumin 3.0 L (3.4-5.0) g/dl Globulin 5.6 gm/dL Albumin/Globulin Ratio 0.5 L (1-2) SARS-CoV-2 RNA (NORA) (NEGATIVE) 08/07/20 08/07/20 Range/Units 15:10 16:00 WBC (3.98-10.04) K/mm3 RBC (3.98-5.22) M/mm3 Hgb (11.2-15.7) gm/dl Hct (34.1-44.9) % MCV (79.4-94.8) fl MCH (25.6-32.2) pg MCHC (32.2-35.5) g/dl RDW Std Deviation (36.4-46.3) fL Plt Count (182-369) K/mm3 MPV (9.4-12.3) fl Neutrophils % (Manual) (40-60) % Band Neutrophils % (0-10) % Lymphocytes % (Manual) (20-40) % Atypical Lymphs % % Monocytes % (Manual) (2-10) % Eosinophils % (Manual) (0.7-5.8) % Basophils % (Manual) (0.1-1.2) Platelet Estimate Plt Morphology Comment Hypochromasia RBC Morph Comment PT (9.7-11.7) SECONDS INR Sodium (136-145) mEq/L Potassium (3.5-5.1) mEq/L Chloride (98-107) mEq/L Carbon Dioxide (21-32) mEq/L Anion Gap (5-15) BUN (7-18) mg/dL Creatinine (0.55-1.02) mg/dL Est Cr Clr Drug Dosing mL/min Estimated GFR (MDRD) (>60) mL/min BUN/Creatinine Ratio (14-18) Glucose (74-106) mg/dL Lactic Acid 0.8 (0.4-2.0) mmol/L Calcium (8.5-10.1) mg/dL Total Bilirubin (0.2-1.0) mg/dL AST (15-37) U/L ALT (14-59) U/L Alkaline Phosphatase (46-116) U/L C-Reactive Protein (<1.0) mg/dL Total Protein (6.4-8.2) g/dl Albumin (3.4-5.0) g/dl Globulin gm/dL Albumin/Globulin Ratio (1-2) SARS-CoV-2 RNA (NORA) Negative (NEGATIVE) Meds: Medications Discontinued Medications Generic Name Dose Route Start Last Admin Trade Name Freq PRN Reason Stop Dose Admin Acetaminophen 975 mg 08/07/20 16:53 08/07/20 17:18 Tylenol PO 08/07/20 16:54 975 mg NOW ONE Administration Ceftriaxone Sodium 2 gm/ 100 mls @ 200 mls/hr 08/07/20 15:15 08/07/20 15:55 Sodium Chloride IV 200 mls/hr Q24H MITA Administration Vancomycin HCl 1 gm/ 250 mls @ 166.667 mls/hr 08/07/20 16:00 08/07/20 16:46 Vancomycin HCl 250 mg/ Sodium IV 08/07/20 17:29 166.667 mls/hr Chloride ONETIME ONE Administration Vancomycin HCl 1 gm/ Sodium 250 mls @ 250 mls/hr 08/08/20 00:00 Chloride IV Q8H MITA Sodium Chloride 1,000 mls @ 150 mls/hr 08/07/20 17:25 08/07/20 18:09 Normal Saline IV 08/08/20 00:04 150 mls/hr NOW STA Administration Lorazepam 0.5 mg 08/07/20 15:44 09/30/20 15:50 Ativan IVPUSH 08/07/20 15:45 0.5 mg ONETIME ONE Administration Sodium Chloride 10 ml 08/07/20 14:32 08/07/20 15:35 Saline Flush FLUSH 10 ml ASDIRECTED PRN Administration Keep Vein Open Vancomycin HCl 1 dose 08/07/20 15:07 08/07/20 16:46 Pharmacy To Dose - Vancomycin .XX 08/07/20 15:08 1 gram ONETIME ONE Administration - Re-Assessments/Exams Free Text/Narrative Re-Assessment/Exam: Patient is a 39-year-old female presenting to the emergency department with complaints of fever, chills, and an infected wound to her left lower leg. On exam, she does have a 2 open areas with significant redness and warmth to the medial aspect of her left lower leg. She also has a scabbed area to her left forearm from shooting up meth, however there is no significant redness surrounding this. Patient was found to be febrile and tachycardic in triage. Other vital signs are stable. She took ibuprofen prior to coming to the ER. I have ordered a CBC, CMP, CRP, lactic acid, blood cultures x2, chest x-ray, and a rapid COVID test. Once blood cultures are drawn, we will give Rocephin 2 g IV as well as vancomycin dosed by pharmacy. 08/07/20 17:38 Hematology was significant for WBC elevated at 16.72 with a left shift. There was no bandemia. CRP elevated at 14.1, alk phos 134. Patient is COVID negative. Temperature was elevated at 102.3. I ordered Tylenol 975 mg p.o. I do not feel this patient is appropriate for outpatient antibiotic therapy due to her history of IV drug use, and evidence of systemic infection based on her temperature of 102.3 with mild tachycardia. I called [facility] in [place] and spoke with Dr. Brown. He accepted the patient for transfer with a direct admission. Patient updated and she is in agreement. Patient will go by ground ambulance. Departure - Departure Time of Disposition: 17:22 Disposition: DC/Tfer to [facility] 02 Condition: Good Clinical Impression: Wound cellulitis - Discharge Information Referrals: Niki [facility]ba [employer] [Primary Care Provider] - Forms: ED Department Discharge Sepsis Event Note (ED) - Evaluation Sepsis Screening Result: Possible Sepsis Risk
[2020-08-07] MEDS ORDERED: cefTRIAXone 2 GM in Sodium Chloride 0.9% 100 ML IV SCH (15:15)
[2020-08-07] MEDS ORDERED: LORazepam 2 MG/ML SDV IVPUSH ONE (15:44)
[2020-08-07] MEDS ORDERED: Vancomycin 1 GM, Vancomycin 250 MG in Sodium Chloride 0.9% 250 ML IV ONE (16:00)
[2020-08-07] MEDS ORDERED: Acetaminophen 325 MG Tab PO ONE (16:53)
[2020-08-07] MEDS ORDERED: Sodium Chloride 0.9% 1,000 ML IV STA (17:25)
--- NOTE | 2020-09-12 13:59 | CR ---
PROCEDURE INFORMATION: Exam: XR Chest, 1 View Exam date and time: 08/07/2020 2:50 PM Age: 39 years old Clinical indication: Fever TECHNIQUE: Imaging protocol: XR of the chest Views: 1 view. COMPARISON: CR Chest 2V 09/21/2018 10:53 AM FINDINGS: Lungs: Unremarkable. No consolidation. Pleural space: Unremarkable. No pleural effusion. No pneumothorax. Heart/Mediastinum: Unremarkable. No cardiomegaly. Bones/joints: Unremarkable. IMPRESSION: No acute findings. Thank you for allowing us to participate in the care of your patient. Dictated and Authenticated by: Tom Vogel MD 09/12/2020 2:56 PM Central Time ([place] & [place]) VIRY
== END 2020-08-07 18:22 ==
LOC: JD.ED 14:06
DX: L03.116 Cellulitis of left lower limb (principal); R50.9 Fever, unspecified; F41.9 Anxiety disorder, unspecified; F17.210 Nicotine dependence, cigarettes, uncomplicated; E66.9 Obesity, unspecified; Z68.32 Body mass index [BMI] 32.0-32.9, adult; Z98.890 Other specified postprocedural states; Z88.1 Allergy status to other antibiotic agents; Z88.5 Allergy status to narcotic agent; Z79.899 Other long term (current) drug therapy; Z20.828 Contact with and (suspected) exposure to other viral communicable diseases
CPT/HCPCS: 36415; 71045; 80053; 83605; 85007; 85027; 85610; 86140; 87040; 87635; 96365; 96367; 96375; 99285; A9270; J0696; J2060; J3370; J7030; J7050; 99284; U0002